=== PATIENT | male | born 1955 | race Caucasian/White ===

== ENCOUNTER 2017-06-12 07:41 | Day surgery (SDC) | payer OTHER ==
[2017-06-12] MEDS ORDERED: PROPOFOL 500 MG/50 ML EMU IV ONE ×2 (09:23→09:49)
[2017-06-12 10:15] VITALS: TEMP 97.3
[2017-06-12 10:39] VITALS: RESP 18
[2017-06-12 10:46] VITALS: BP 129/80; PULSE 69; O2SAT 94
== END 2017-06-12 10:58 | disposition home or self-care (01) | DRG 951 ==
LOC: SURG 07:41
PROVIDERS: ATTEND Internal Medicine Gastroenterology
DX: Z12.11 Encounter for screening for malignant neoplasm of colon (principal); D12.2 Benign neoplasm of ascending colon; Z80.0 Family history of malignant neoplasm of digestive organs; Z86.010 Personal history of colon polyps; K57.30 Diverticulosis of large intestine without perforation or abscess without bleeding; K64.8 Other hemorrhoids; D12.4 Benign neoplasm of descending colon; D12.3 Benign neoplasm of transverse colon; D12.8 Benign neoplasm of rectum; K62.1 Rectal polyp
CPT/HCPCS: 99001; J2704